=== PATIENT | female | born 1985 | race Caucasian/White ===

== ENCOUNTER 2024-07-05 20:39 | Emergency (ER) | payer MEDICAID ==
[2024-07-05 22:18] LABS: APPEARANCE,URINE CLOUDY (CLEAR); BILIRUBIN,URINE NEGATIVE (NEGATIVE); COLOR,URINE YELLOW (YELLOW); GLUCOSE,URINE NEGATIVE (NEGATIVE); KETONES,URINE TRACE mg/dL (NEGATIVE); LEUKOCYTE ESTERASE,URINE SMALL (NEGATIVE); NITRITE,URINE NEGATIVE (NEGATIVE); OCCULT BLOOD,URINE NEGATIVE (NEGATIVE); PROTEIN,URINE 30 mg/dL (NEGATIVE); UROBILINOGEN,URINE 0.2 EU/dL (0.2)
[2024-07-05] MEDS ORDERED: Sulfamethoxazole/Trimethoprim 800-160 MG Tab PO SCH (22:30)
[2024-07-05 22:33] LABS: RBC,URINE 0-5 /HPF (NOT SEEN)
[2024-07-05 22:34] LABS: BACTERIA,URINE MODERATE /HPF (NOT SEEN); SQUAMOUS EPITHELIAL CELLS,UR MANY /HPF (NOT SEEN); TRICHOMONAS,URINE FEW /HPF (NONE - FEW)
[2024-07-05] MEDS: Sulfamethoxazole/Trimethoprim 800-160 MG Tab PO ONE (22:42)
[2024-07-05] MEDS: metroNIDAZOLE 500 MG Tab PO ONE (22:42)
[2024-07-05] MEDS: Amoxicillin 875 MG Tab PO ONE (22:42)
== END 2024-07-05 22:50 | disposition home or self-care (01) ==
LOC: VM.ED 20:39
DX: A59.9 Trichomoniasis, unspecified (principal); L02.11 Cutaneous abscess of neck; L02.414 Cutaneous abscess of left upper limb
CPT/HCPCS: 81001; 87086; 99283; A9270